=== PATIENT | female | born 1975 | race African-American/Black ===

== ENCOUNTER 2016-08-10 11:56 | Inpatient (IN) | payer OTHER ==
--- NOTE | ~2016-08-10 | DS ---
Discharge Summary [facility] [address] [place]. [address] NAME: ANTHONY DUGAN : 71 STATUS : ADM IN [facility]#: [id number] AGE: 41 ADM/REG DATE : 08/10/16 MR#: [id number] REPORT SERV DATE: 08/16/16 DICTATED BY: TAMAR OWENS DATE: 08/16/16 REPORT STATUS : Draft TRANSCRIBED BY: MODL DATE: 08/16/16 ADMISSION DATE: 08/10/2016 DISCHARGE DATE: 08/16/2016 FINAL HOSPITAL DIAGNOSES: 1. Congestive heart failure. 2. HIV. 3. Chronic kidney disease. CONSULTATIONS: Dr. Hyatt, Cardiology, and Dr. Romero, Infectious Disease. PROCEDURES: 1. Echocardiogram done on the showing LV systolic function 36%, anteroseptal akinesis moderate, left atrial dilatation. 2. CT abdomen and pelvis done on the showing enlarged liver with no focal lesions, cardiomegaly, and cholelithiasis. CURRENT PHYSICAL FINDINGS AND HISTORY OF PRESENT ILLNESS: Please see dictated H and P by Dr. Borja on the . In brief, the patient came in with complaint of shortness of breath, was noted to have a decreased EF, and pulmonary edema. Vitals at time of admission, blood pressure was 138/98, temperature was 97.9, pulse was 108. LAB: Initial BMP showed a creatinine of 1.69, she had a creatinine of 1.67 in 07/2016, 1.15 in 02/2015. BNP was 2654. HCG was negative. CBC showed a mild anemia at 9.6 and 30.0. Flu screen was negative. CD4 counts are currently pending. Urinalysis showed trace LE, but 20 epithelial cells. UDS done on the was positive for cocaine and opiates. Blood cultures done on the were negative. Cryptococcal antigen is pending. HOSPITAL COURSE: The patient was admitted for above symptoms. She was started on diuretics, electrolytes, and renal function were monitored. When repeat echocardiogram noted the decreased EF, Cardiology was consulted. On reviewing her previous records just forwarded by Diagnostic, her akinesis and decrease CHF were actually somewhat improved and chronic. Through her hospital course, she was diuresed with a slight increase in her creatinine, but overall her symptoms improved. She was also placed on a fluid restriction. She had no other significant problems or complications during her hospital stay and cardiology signed off with recommendations to follow up with her previous rose grader, Dr. Grady. ID recommended she follow the previous ID physicians and an outpatient followup with [facility] will be arranged for monitoring her diuretics and renal function. Prescriptions were written for Coreg 6.25 b.i.d. and Crestor 20 one per day. She will otherwise resume aspirin 81 one per day, Triumeq one daily, Diflucan dose was decreased to 200 daily. She will continue any OTC cough medicines, Valium 2 mg b.i.d., Lasix 20 one per day. Discharge Summary [address] [place]. [address] NAME: ANTHONY DUGAN : 71 STATUS : ADM IN PAT#: [id number] AGE: 41 ADM/REG DATE : 08/10/16 MR#: [id number] REPORT SERV DATE: 08/16/16 DICTATED BY: TAMAR OWENS DATE: 08/16/16 REPORT STATUS : Draft TRANSCRIBED BY: LEANDRA DATE: 08/16/16 RICKF/LEANDRA Tamar Owens M.D. / [id number] CC: Tamar Owens M.D.
--- NOTE | ~2016-08-10 | HP ---
History And Physical [id number] [place]. [address] NAME: ANTHONY DUGAN : 71 STATUS : ADM IN [facility]#: [id number] AGE: 41 ADM/REG DATE : 08/10/16 MR#: [id number] REPORT SERV DATE: 08/10/16 DICTATED BY: LINDSEY ROY DATE: 08/10/16 REPORT STATUS : Draft TRANSCRIBED BY: MODAlfonso DATE: 08/10/16 DATE OF ADMISSION: 08/10/2016 REASON FOR ADMISSION: Acute congestive heart failure, pulmonary edema. HISTORY OF PRESENT ILLNESS: Ms. Dugan is a 41-year-old female with history of HIV, chronic pain, presents to the emergency department today with cough for one month, treated with [id number] remedies for cold. The cough has been dry with occasional mucus production associated with low back pain and pleuritic pain. She has had fevers at night with sweats. Appetite has been very poor and she has lost some nonspecific amount of weight. She has had some nausea and vomiting, only has tolerated clears. She has had leg swelling, shortness of breath, dyspnea on exertion, orthopnea, and PND but no bleeding or neurologic complaints. REVIEW OF SYSTEMS: Remainder of review of systems is negative. PAST MEDICAL HISTORY: As mentioned above. History of meningitis for which she had a protracted recovery. MEDICATIONS: Include Triumeq, Valium, and Lasix. ALLERGIES: NONE. FAMILY HISTORY: Positive for cardiac disease. SOCIAL HISTORY: The patient is a smoker. PHYSICAL EXAMINATION: VITAL SIGNS: On presentation, blood pressure 156/93, pulse 108, respiratory rate 18, afebrile, saturating 98%. GENERAL: Awake, alert, and oriented x3. No apparent distress, very tearful and anxious. HEENT: Pupils are equal, round, and reactive to light. Extraocular movements intact. No carotid deficits. Moist mucous membranes. Normal oropharynx. NECK: Revealed elevated jugular venous pulsations. No carotid bruits, adenopathy, or goiter. CARDIAC: Tachycardic. Regular rhythm. No murmurs, gallops, or rubs. LUNGS: Revealed a few crackles at bilateral bases. ABDOMEN: Showed nondistended, nontender with hepatojugular reflux noted. EXTREMITIES: 1+ edema bilaterally. Good pulses and capillary refill. She had 3+ deep tendon reflexes throughout. Normal motor function x4. SKIN: Warm and dry. PSYCHIATRIC: She is appropriate. LABORATORY EVALUATION: Sodium 140, potassium 3.6, chloride 108, bicarb 23, BUN 26, creatinine 1.7, glucose 95. BNP 2600. White count 4000, H and H 10/30, platelets 385. History And Physical [address] [address] NAME: ANTHONY DUGAN : 71 STATUS : ADM IN PAT#: [id number] AGE: 41 ADM/REG DATE : 08/10/16 MR#: [id number] REPORT SERV DATE: 08/10/16 DICTATED BY: LINDSEY ROY DATE: 08/10/16 REPORT STATUS : Draft TRANSCRIBED BY: LEANDRA DATE: 08/10/16 Alkaline phosphatase 248, AST 92, ALT 104. Chest x-ray showed evidence of pulmonary edema. EKG showed left ventricular hypertrophy with lateral T-wave inversions. Flu swab was negative. CT of the abdomen for unclear indications showed a benign-appearing gallstone. Pulmonary edema was also verified. ASSESSMENT AND PLAN: 1. Acute congestive heart failure, new diagnosis, question is high output. Not aware of any cardiac complications of Triumeq. We will diurese her, get an echocardiogram, anticipate carvedilol and afterload reducers. However, right now, her tachycardia seems to be mostly driven by anxiety. Anxiolytics, pain control are indicated. 2. Human immunodeficiency virus. Continue Triumeq. 3. Elevated liver function enzymes, probably due to passive congestion. Re-evaluate following diuresis, but consider hepatitis serology. We will try to get records from Dr. Garcia regarding this. 4. Chronic kidney disease, question acute kidney injury. The patient seems euvolemic. We will follow for now. In light of her hypertension, we may consider hydralazine for renal artery dilatation. 5. Anemia, likely due to the human immunodeficiency virus itself. We will follow her iron stores. BHARGAVI/LEANDRA Lindsey Roy M.D. / [id number] CC: Dwaine Neville M.D.
--- NOTE | ~2016-08-10 | CN ---
Consultation Report [facility] [address] [place]. [address] NAME: ANTHONY DUGAN : 71 STATUS : ADM IN PAT#: [id number] AGE: 41 ADM/REG DATE : 08/10/16 MR#: [id number] REPORT SERV DATE: 08/14/16 DICTATED BY: JUAN ROMERO DATE: 08/14/16 REPORT STATUS : Draft TRANSCRIBED BY: MODL DATE: 08/14/16 INFECTIOUS DISEASE CONSULT DATE OF CONSULTATION: REASON FOR REFERRAL: Evaluation and treatment of cardiac disease in an HIV patient. HISTORY OF PRESENT ILLNESS: The patient is a 41-year-old female. She has a history of HIV that I believe goes back some nine years. She states she sees now Dr. Garcia. In 2014, she was diagnosed with meningitis and was treated at [facility], I do not have access to those records now. The patient says she has had difficulty with cognitive dysfunction, memory, etc, since then. While hospitalized for that, she also states she had a heart attack. She states that she has been taking anti-HIV medication in the form of Triumeq since 2014 and that her last viral load when checked by Dr. Garcia in 2016, in March, was undetectable. She came in here on 08/10/2016 complaining of over a month of increasing shortness of breath, paroxysmal nocturnal dyspnea, orthopnea, nausea, and general fatigue. Her chest x-ray was consistent with pulmonary edema. She has been evaluated by Cardiology and has responded to diuresis. She has had no fevers, chills, or night sweats. She has had no productive cough. There has been nothing that appears to be pneumonia on her chest x- ray. No headache, diarrhea, skin lesions, or rashes. No unusual environmental exposures. She insists she has been taking her Triumeq without missing doses. PAST MEDICAL HISTORY: Otherwise, unremarkable. MEDICATIONS: As mentioned above. ALLERGIES: SHE HAS NO KNOWN ANTIMICROBIAL ALLERGIES. SOCIAL HISTORY: She is , smokes, has no history of alcohol or substance abuse, and has been at home trying to take care of two grandchildren on her own. FAMILY HISTORY: Noncontributory. PHYSICAL EXAMINATION: GENERAL: A nontoxic adult female, in no acute distress. Alert and oriented. VITAL SIGNS: Temperature has been normal throughout the hospital stay, 98.1 at present with a pulse of 98, respirations 16, blood pressure 118/55, weight 77 kg. HEENT: Sclerae clear. No oral lesions. No signs of oral thrush. NECK: Supple without meningeal signs or lymphadenopathy. LUNGS: Some rales bilaterally in the bases. HEART: Regular rate and rhythm. ABDOMEN: Soft, nontender. Positive bowel sounds. EXTREMITIES: Without clubbing or cyanosis. Mild edema in both lower extremities. No Consultation Report [address] [place]. [address] NAME: ANTHONY DUGAN : 71 STATUS : ADM IN PAT#: [id number] AGE: 41 ADM/REG DATE : 08/10/16 MR#: [id number] REPORT SERV DATE: 08/14/16 DICTATED BY: UJAN ROMERO DATE: 08/14/16 REPORT STATUS : Draft TRANSCRIBED BY: LEANDRA DATE: 08/14/16 rashes noted. LABORATORY DATA: White blood cell count on 08/10/2016 was 4.4, hematocrit 30, platelets 385, unremarkable differential. BUN and creatinine 22 and 2.04, creatinine was 1.69 at admission. Liver function tests mildly elevated at admission. Alkaline phosphatase 279, SGPT 119, SGOT 93, it felt likely be due to congestive phenomenon with congestive heart failure. IMPRESSION: 1. Human immunodeficiency virus infection, status unknown, but the patient states she has an undetectable viral load and has not been missing doses of her anti-HIV medication. 2. Congestive heart failure. There is an increased risk of coronary artery disease associated with both human immunodeficiency virus and the abacavir component of Triumeq, but there is no inherent cardiac toxicity from either that I am aware of. RECOMMENDATIONS: 1. Continue Triumeq for now. We will discuss her case, if I can, with Dr. Garcia who normally follows her. 2. Check CD4 and viral load. Finally, I will follow the patient with you. I appreciate very much your consulting on this patient. ARTUR Juan Romero M.D. / [id number] CC: Dwaine St M.D.
--- NOTE | ~2016-08-10 | CN ---
Consultation Report [facility] [address] [place]. [address] NAME: ANTHONY DUGAN : 71 STATUS : ADM IN PAT#: [id number] AGE: 41 ADM/REG DATE : 08/10/16 MR#: [id number] REPORT SERV DATE: 08/13/16 DICTATED BY: JACQUELYN REES DATE: 08/12/16 REPORT STATUS : Draft TRANSCRIBED BY: MODAlfonso DATE: 08/12/16 CARDIOLOGY CONSULT DATE OF CONSULTATION: REASON FOR CONSULTATION: This is a 41-year-old female, we were consulted for heart failure. HISTORY OF PRESENT ILLNESS: This is a 41-year-old female who has a long- standing history of HIV at least nine years according her recollection with complex past medical history. She is a very poor historian, and there are very limited records available. I have learned from the patient and her relative who was in the room that she has meningitis, seizures, and some possible myocardial infarction around 2014 when she had been the [facility]. She had been treated by Dr. Miah Wright at that time. She does not remember whether she had coronary arteriogram or not. Subsequently, she was transferred to a penitentiary and then the hospice. She has on the hospice care, but then was discharged. Circumstances are unclear. She was in the hospital transiently and seen by Dr. Perrin. When she has been on hospice care, she has chronic pain syndrome with some pain in the rectum also. This is around 2014. She has chronic anemia and chronic kidney disease. Apparently, she is followed by a physician at [facility] [place] [facility] of unknown name. She has not followed by Infectious Disease specialist. The patient reported that she has been taking only medication for HIV namely Triumeq 1 tablet once a day. She has been occasionally taking Robitussin, Lasix, Diflucan, and Valium over the last month while she developed progressive dyspnea on exertion, nausea, vomiting, anorexia, and inability breathe according to her recollection. She has had some fevers and night sweats. She was found to have cardiomegaly, hepatomegaly, and interstitial edema on the chest x-ray, and she is just started to be treated for heart failure by Primary Service. Echocardiogram earlier today, interpreted by Dr. Dias, revealed moderate LV enlargement. There is moderate decrease in systolic function. EF 35%. I personally reviewed the images which revealed mild global hypokinesis. There is anterior and anteroseptal akinesis with trace pericardial effusion and left atrial enlargement. There is also mild mitral valve regurgitation. No previous echocardiogram available for comparison. The patient is now able to talk to me without any significant dyspnea. She denied any chest pain, palpitation, or syncope. She had been reportedly chronically short of breath. She is in a difficult situation while she is from her and now is raising two of her grandkids 5 and 3-year-old. She has been walking without any support. She is a very poor historian. The rest of review of systems is negative. PAST MEDICAL HISTORY: 1. HIV at least for nine years. 2. Cardiomegaly, likely chronic with reported history of myocardial infarction in [address] Wright evaluation at the [facility]. 3. Chronic left bundle-branch block. 4. Reported history of meningitis and seizure disorder in 2014, the patient was subsequently on hospice care. Consultation Report [address] [place]. [address] NAME: ANTHONY DUGAN : 71 STATUS : ADM IN [facility]#: [id number] AGE: 41 ADM/REG DATE : 08/10/16 MR#: [id number] REPORT SERV DATE: 08/13/16 DICTATED BY: JACQUELYN REES DATE: 08/12/16 REPORT STATUS : Draft TRANSCRIBED BY: LEANDRA DATE: 08/12/16 5. Chronic anemia. There is chronic kidney disease. 6. History of drug abuse. 7. Medical noncompliance. SOCIAL HISTORY: The patient is from her . She is unemployed. She is currently raising two grandkids and lives alone. She denies smoking cigarettes, but admits to smoke marijuana. She has been possibly using other drugs, but she is not clear on that. No drug screen was obtained yet. No alcohol. FAMILY HISTORY: Negative for sudden cardiac premature in family. HOME MEDICATIONS: Triumeq once a day, Valium as needed, Diflucan 400 mg once a day, Lasix was prescribed by PCP recently, and NyQuil and Robitussin. She was just started today by Dr. Borja on Lipitor, Coreg, and aspirin. Since yesterday, on hydralazine and nitroglycerin. PHYSICAL EXAMINATION: GENERAL: In no acute distress. VITAL SIGNS: Blood pressure 107/59, heart rate 104 and regular. HEENT - Pupils reactive to light and accommodation. Moist mucosa membrane. NECK: No JVD. Normal carotid upstroke. No carotid bruits. LUNGS: Decreased breath sounds with occasional crackles at the bases. HEART: S1. No S3-S4, lateral displaced PMI. ABDOMEN: Distended, nontender. LOWER EXTREMITIES: Trace edema around the ankle with decreased pedal pulses bilaterally. SKIN: Warm with normal turgor. MS: No kyphosis. NEURO/PSY: Alert and oriented. Nonfocal. DATA: Remarkable for CBC with hemoglobin of 9.6. Brain natriuretic peptide elevated up to 2659. Chest x-ray: Cardiomegaly with interstitial edema. CT of the abdomen revealed hepatomegaly, but no ascites. Creatinine 1.6, BUN 28, troponin 0.02 and 0.05. TSH normal. Electrocardiogram revealed normal sinus rhythm at 97 beats per minute with chronic left bundle-branch block. Echocardiogram as above. ASSESSMENT AND PLAN: 1. Heart failure exacerbation. 2. Cardiomegaly of unknown etiology with possible remote history of myocardial infarction. 3. Human immunodeficiency virus infection. 4. Anemia. Consultation Report [address] [address] NAME: ANTHONY DUGAN : 71 STATUS : ADM IN [facility]#: [id number] AGE: 41 ADM/REG DATE : 08/10/16 MR#: [id number] REPORT SERV DATE: 08/13/16 DICTATED BY: JACQUELYN REES DATE: 08/12/16 REPORT STATUS : Draft TRANSCRIBED BY: LEANDRA DATE: 08/12/16 5. Chronic kidney disease. PROBLEMS, MEDICAL NONCOMPLIANCE: The patient should have definitely urine drug screen performed. She is sedated since she has been at the hospital. So far, her blood culture is negative. She will need to be in strict I and O, fluid restriction, and start her diuresis. I agree on carvedilol. She may be in case that her kidney function will improve, a candidate for JEANNA inhibitor or ARB. We will try to obtain records from Dr. Wright from [facility]. In case she never had coronary arteriogram, she may be a candidate for one to determine if she indeed has myocardial infarction and ischemic cardiomyopathy, her cardiomyopathy. There is no significant pericardial effusion. We discussed that also HIV may be affecting one of the cause of her cardiomyopathy. She will need to be closely followed by the primary care physician and find the infectious disease specialist. Multiple questions answered. ALLYSON/JINGL Jacquelyn Rees M.D. / [id number] CC: Robinson Borja M.D. NO PCP
[2016-08-10 10:20] LABS: BASOPHILS 0.5 %; BASOPHILS ABSOLUTE 0.02 10/3/uL (0.0-0.16); EOSINOPHILS ABSOLUTE 0.09 10/3/uL (0.0-0.53); ER CBC TAT 0 Hrs 16 Mins; HEMOGLOBIN 9.6 g/dL (12.0-16.0); LYMPHOCYTES 28.4 %; LYMPHOCYTES ABSOLUTE 1.26 10/3/uL (0.67-4.30); MEAN CORPUSCULAR HEMOGLOB 29.6 pg (26.0-34.0); MEAN CORPUSCULAR VOLUME 92.6 fL (80-100); MEAN PLATELET VOLUME 9.5 fL (9.2-13.0); MONOCYTES 8.8 %; MONOCYTES ABSOLUTE 0.39 10/3/uL (0.21-1.20); NEUTROPHILS 60.3 %; NEUTROPHILS ABSOLUTE 2.68 10/3/uL (2.02-8.40); PLATELET COUNT 385 10/3/uL (150-400); RBC DISTRIBUTION WIDTH 14.2 % (12.0-16.0); RED CELL COUNT 3.24 10/6/uL (4.0-5.6); WHITE BLOOD CELLS 4.4 10/3/uL (4.5-10.5)
[2016-08-10 10:21] LABS: MANUAL DIFF NO %
[2016-08-10 10:26] LABS: INFLUENZA A SCREEN NEGATIVE (NEGATIVE); INFLUENZA B SCREEN NEGATIVE (NEGATIVE)
[2016-08-10 10:31] LABS: BUN (BLOOD UREA NITROGEN) 22 MG/DL (6-23); CALCIUM, SERUM 8.2 MG/DL (8.5-10.4); CHLORIDE, SERUM 108 MMOL/L (96-112); CO2 (CARBON DIOXIDE) 23 MMOL/L (24-34); CREATININE 1.69 MG/DL (0.55-1.02); GFR AFRICAN AMERICAN 42 ML/MIN (>=60); GFR NON AFRICAN AMERICAN 37 ML/MIN (>=60); GLUCOSE, SERUM 95 MG/DL (60-99); POTASSIUM, SERUM 3.6 MMOL/L (3.5-5.3); SGOT(AST) 92 U/L (5-40); SGPT(ALT) 109 U/L (5-65); SODIUM, SERUM 140 MMOL/L (135-148); TOTAL BILIRUBIN 0.5 MG/DL (0-1.2); TOTAL PROTEIN 6.9 G/DL (6.0-8.5); TROPONIN I 0.04 NG/ML (<0.05)
[2016-08-10 10:32] LABS: A/G RATIO 0.6 (0.7-1.9); ALBUMIN 2.7 G/DL (3.5-5.0); ALKALINE PHOSPHATASE 248 U/L (45-117); GLOBULIN 4.2 G/DL (2.5-4.1)
[2016-08-10 11:05] LABS: ASCORBIC ACID (UR NOT ORDER) NEG (NEG); BILIRUBIN, URINE NEGATIVE (NEG); ER URINALYSIS TAT 0 Hrs 20 Mins; KETONE, URINE NEGATIVE (NEG); LEUKOCYTE ESTERASE(NOT OR TRACE (NEG); NITRITE (URINE) NEG (NEG); WBC (NOT ORDERED) (RFLEX) 9 (0-5)
[~2016-08-10 11:56] MED LIST: ACET500CAP PO; ANUSOL-HC2.5 % RE; CORDARONE PO; DOLOPHINE5 MG PO; DSS PO; ENULOSE PO; FLU PO; HIV MED PO; KEPPRA500 PO; LOP25 PO; NORCO1 TAB PO; NYQUIL COLD PO; OXYCONTIN15 MG PO; PERCOCET1 TA4 PO; PR25 PO; PRIN10 PO; ROBITUSSIN PO; SENTAB PO; THERAFLU PO; TRIUMEQ TABLET1 EACH PO; XANAX1 MG PO
[2016-08-10] MEDS ORDERED: FLUCON2 PO (13:02)
[2016-08-10] MEDS ORDERED: V2 PO (13:03)
[2016-08-10] MEDS ORDERED: VIRTUSSIN AC PO (13:05)
[2016-08-10] MEDS ORDERED: L20 PO (13:08)
[2016-08-10 19:41] LABS: FREE T4 1.43 NG/DL (0.76-1.46)
[2016-08-11 08:32] LABS: A/G RATIO 0.7 (0.7-1.9); ALBUMIN 3.1 G/DL (3.5-5.0); BUN (BLOOD UREA NITROGEN) 19 MG/DL (6-23); CALCIUM, SERUM 8.5 MG/DL (8.5-10.4); CHLORIDE, SERUM 100 MMOL/L (96-112); CO2 (CARBON DIOXIDE) 27 MMOL/L (24-34); CREATININE 1.81 MG/DL (0.55-1.02); GFR AFRICAN AMERICAN 39 ML/MIN (>=60); GFR NON AFRICAN AMERICAN 34 ML/MIN (>=60); GLOBULIN 4.5 G/DL (2.5-4.1); GLUCOSE, SERUM 78 MG/DL (60-99); POTASSIUM, SERUM 3.7 MMOL/L (3.5-5.3); SGOT(AST) 93 U/L (5-40); SGPT(ALT) 119 U/L (5-65); SODIUM, SERUM 141 MMOL/L (135-148); TOTAL BILIRUBIN 0.6 MG/DL (0-1.2); TOTAL PROTEIN 7.6 G/DL (6.0-8.5)
[2016-08-11 08:33] LABS: ALKALINE PHOSPHATASE 279 U/L (45-117)
[2016-08-12 17:05] LABS: AMPHETAMINES (NOT ORD) NEG (NEG); BENZODIAZEPINES (NOT ORD) NEG (NEG); COCAINE (NOT ORDERED) POS (NEG); PHENCYCLIDINE(PCP) NEG (NEG)
[2016-08-12 17:06] LABS: BARBITURATES (NOT ORDERED NEG (NEG); CANNABINOIDS (THC) NEG (NEG); OPIATES POS (NEG); TRICYCLICS NEG (NEG)
[2016-08-13 07:52] LABS: BUN (BLOOD UREA NITROGEN) 17 MG/DL (6-23); C-REACTIVE PROTEIN 90.8 MG/L (<8.0); CALCIUM, SERUM 8.6 MG/DL (8.5-10.4); CHLORIDE, SERUM 100 MMOL/L (96-112); CHOL/HDL RATIO(NOT ORDER) 2.1 (0-5); CHOLESTEROL 118 MG/DL (< 200); CO2 (CARBON DIOXIDE) 26 MMOL/L (24-34); CREATININE 1.68 MG/DL (0.55-1.02); GFR AFRICAN AMERICAN 43 ML/MIN (>=60); GFR NON AFRICAN AMERICAN 37 ML/MIN (>=60); GLUCOSE, SERUM 89 MG/DL (60-99); HDL CHOLESTEROL 57 MG/DL (> 49); LDL CHOLESTEROL 45 MG/DL (< 130); NON-HDL CHOLESTEROL 61 MG/DL (< 160); POTASSIUM, SERUM 3.2 MMOL/L (3.5-5.3); SODIUM, SERUM 138 MMOL/L (135-148); TRIGLYCERIDE 83 MG/DL (< 150)
[2016-08-14 05:54] LABS: CALCIUM, SERUM 8.6 MG/DL (8.5-10.4); CHLORIDE, SERUM 102 MMOL/L (96-112); CO2 (CARBON DIOXIDE) 25 MMOL/L (24-34); CREATININE 2.04 MG/DL (0.55-1.02); GFR AFRICAN AMERICAN 34 ML/MIN (>=60); GFR NON AFRICAN AMERICAN 29 ML/MIN (>=60); GLUCOSE, SERUM 87 MG/DL (60-99); POTASSIUM, SERUM 3.4 MMOL/L (3.5-5.3); SODIUM, SERUM 139 MMOL/L (135-148)
[2016-08-14 05:55] LABS: BUN (BLOOD UREA NITROGEN) 22 MG/DL (6-23)
[2016-08-15 12:47] LABS: BUN (BLOOD UREA NITROGEN) 25 MG/DL (6-23); CALCIUM, SERUM 8.8 MG/DL (8.5-10.4); CHLORIDE, SERUM 99 MMOL/L (96-112); CO2 (CARBON DIOXIDE) 27 MMOL/L (24-34); CREATININE 1.95 MG/DL (0.55-1.02); GFR AFRICAN AMERICAN 36 ML/MIN (>=60); GFR NON AFRICAN AMERICAN 31 ML/MIN (>=60); GLUCOSE, SERUM 101 MG/DL (60-99); POTASSIUM, SERUM 4.1 MMOL/L (3.5-5.3); SODIUM, SERUM 135 MMOL/L (135-148)
[2016-08-16 11:40] LABS: BASOPHILS 0.2 %; BASOPHILS ABSOLUTE 0.01 10/3/uL (0.0-0.16); EOSINOPHILS ABSOLUTE 0.22 10/3/uL (0.0-0.53); LYMPHOCYTES 38.7 %; LYMPHOCYTES ABSOLUTE 1.71 10/3/uL (0.67-4.30); MEAN CORPUS HGB CONC 32.3 g/dL (32.0-36.0); MEAN CORPUSCULAR HEMOGLOB 29.9 pg (26.0-34.0); MEAN CORPUSCULAR VOLUME 92.7 fL (80-100); MEAN PLATELET VOLUME 9.5 fL (9.2-13.0); MONOCYTES ABSOLUTE 0.44 10/3/uL (0.21-1.20); NEUTROPHILS 46.1 %; NEUTROPHILS ABSOLUTE 2.04 10/3/uL (2.02-8.40); PLATELET COUNT 380 10/3/uL (150-400); RBC DISTRIBUTION WIDTH 14.6 % (12.0-16.0); RED CELL COUNT 3.68 10/6/uL (4.0-5.6); WHITE BLOOD CELLS 4.4 10/3/uL (4.5-10.5)
[2016-08-16 11:45] LABS: HEMATOCRIT 34.1 % (36.0-48.0); MANUAL DIFF NO %
[2016-08-16 12:45] LABS: CD4 % 15.7 % (30.0-65.0); CD4 LYMPH % 23.6 % (15.0-48.0); CD4 SOURCE Blood (())
[2016-08-16 13:25] LABS: A/G RATIO 0.7 (0.7-1.9); ALBUMIN 2.8 G/DL (3.5-5.0); BUN (BLOOD UREA NITROGEN) 25 MG/DL (6-23); CALCIUM, SERUM 8.4 MG/DL (8.5-10.4); CHLORIDE, SERUM 105 MMOL/L (96-112); CO2 (CARBON DIOXIDE) 24 MMOL/L (24-34); CREATININE 1.52 MG/DL (0.55-1.02); GFR AFRICAN AMERICAN 48 ML/MIN (>=60); GFR NON AFRICAN AMERICAN 42 ML/MIN (>=60); GLOBULIN 4.3 G/DL (2.5-4.1); GLUCOSE, SERUM 89 MG/DL (60-99); POTASSIUM, SERUM 4.2 MMOL/L (3.5-5.3); SGOT(AST) 30 U/L (5-40); SGPT(ALT) 38 U/L (5-65); SODIUM, SERUM 138 MMOL/L (135-148); TOTAL BILIRUBIN 0.4 MG/DL (0-1.2); TOTAL PROTEIN 7.1 G/DL (6.0-8.5)
[2016-08-16 13:27] LABS: ALKALINE PHOSPHATASE 173 U/L (45-117)
[2016-08-16] MEDS ORDERED: CRESTOR20 MG PO (14:41)
[2016-08-16] MEDS ORDERED: COREG6 PO (14:41)
[2016-08-16 16:17] LABS: HIV-1 VIRAL LOAD RESULT 32 (NOTDET); HIV-1 VIRAL RESULT 1.5 (())
== END 2016-08-16 17:40 | disposition home or self-care (01) | DRG 291 ==
LOC: ER 11:56 → 4SO 14:33
PROVIDERS: Emergency Medicine; Internal Medicine; Internal Medicine Cardiovascular Disease; Internal Medicine Infectious Disease
DX: I13.0 Hypertensive heart and chronic kidney disease with heart failure and stage 1 through stage 4 chronic kidney disease, or unspecified chronic kidney disease (principal); I50.31 Acute diastolic (congestive) heart failure; B20 Human immunodeficiency virus [HIV] disease; I42.9 Cardiomyopathy, unspecified; Z91.19 Patient's noncompliance with other medical treatment and regimen; I10 Essential (primary) hypertension; F14.10 Cocaine abuse, uncomplicated; I44.7 Left bundle-branch block, unspecified; N18.9 Chronic kidney disease, unspecified; D63.8 Anemia in other chronic diseases classified elsewhere
CPT/HCPCS: 71010; 74176; 80048; 80053; 80061; 80305; 81001; 82962; 83690; 83735; 83880; 84439; 84443; 84484; 84703; 85025; 86140; 86361; 87040; 87327; 87536; 87804; 93005; 93306; 96374; 96375; 99285; A9270-GY; J1940; J2405

== ENCOUNTER 2016-08-23 15:45 | Emergency (ER) | payer OTHER ==
[2016-08-23 11:16] LABS: BASOPHILS 0.4 %; BASOPHILS ABSOLUTE 0.02 10/3/uL (0.0-0.16); EOSINOPHILS 0.9 %; EOSINOPHILS ABSOLUTE 0.04 10/3/uL (0.0-0.53); ER CBC TAT 0 Hrs 07 Mins; HEMOGLOBIN 9.7 g/dL (12.0-16.0); LYMPHOCYTES 33.9 %; LYMPHOCYTES ABSOLUTE 1.58 10/3/uL (0.67-4.30); MEAN CORPUS HGB CONC 31.3 g/dL (32.0-36.0); MEAN CORPUSCULAR HEMOGLOB 29.5 pg (26.0-34.0); MEAN CORPUSCULAR VOLUME 94.2 fL (80-100); MEAN PLATELET VOLUME 10.3 fL (9.2-13.0); MONOCYTES 8.4 %; MONOCYTES ABSOLUTE 0.39 10/3/uL (0.21-1.20); NEUTROPHILS 56.4 %; NEUTROPHILS ABSOLUTE 2.63 10/3/uL (2.02-8.40); PLATELET COUNT 347 10/3/uL (150-400); RBC DISTRIBUTION WIDTH 15.3 % (12.0-16.0); RED CELL COUNT 3.29 10/6/uL (4.0-5.6); WHITE BLOOD CELLS 4.7 10/3/uL (4.5-10.5)
[2016-08-23 11:17] LABS: MANUAL DIFF NO %
[2016-08-23 11:25] LABS: INTERNATIONAL NORMAL RATI 1.2 UNITS (-); PARTIAL THROMBO TIME 29.3 SEC (22.5-37.2); PROTIME (NOT ORD) 15.5 SEC (12.0-14.5)
[2016-08-23 11:30] LABS: BUN (BLOOD UREA NITROGEN) 26 MG/DL (6-23); CALCIUM, SERUM 8.5 MG/DL (8.5-10.4); CHEST PAIN PROFILE TAT 0 Hrs 21 Mins; CHLORIDE, SERUM 111 MMOL/L (96-112); GFR AFRICAN AMERICAN 39 ML/MIN (>=60); GFR NON AFRICAN AMERICAN 34 ML/MIN (>=60); GLUCOSE, SERUM 95 MG/DL (60-99); SODIUM, SERUM 140 MMOL/L (135-148); TROPONIN I 0.02 NG/ML (<0.05)
[2016-08-23 11:31] LABS: CO2 (CARBON DIOXIDE) 19 MMOL/L (24-34)
[~2016-08-23 15:45] MED LIST changes: +COREG6 PO; +CRESTOR20 MG PO; +FLUCON2 PO; +L20 PO; +V2 PO; +VIRTUSSIN AC PO
== END 2016-08-23 18:43 | disposition home or self-care (01) ==
LOC: ER 15:45
PROVIDERS: Emergency Medicine
DX: I50.9 Heart failure, unspecified (principal); F41.9 Anxiety disorder, unspecified; M54.5 Low back pain; N18.9 Chronic kidney disease, unspecified; B20 Human immunodeficiency virus [HIV] disease
CPT/HCPCS: 71020; 72100; 80048; 83735; 83880; 84484; 85025; 85610; 85730; 93005; 94640; 96374; 96375; 99285; A9270-GY; J1170

== ENCOUNTER 2016-08-29 17:26 | Emergency (ER) | payer OTHER ==
[2016-08-29 18:19] LABS: BASOPHILS 0.4 %; BASOPHILS ABSOLUTE 0.03 10/3/uL (0.0-0.16); EOSINOPHILS 4.8 %; EOSINOPHILS ABSOLUTE 0.37 10/3/uL (0.0-0.53); ER CBC TAT 0 Hrs 05 Mins; HEMATOCRIT 33.1 % (36.0-48.0); HEMOGLOBIN 10.5 g/dL (12.0-16.0); IMMATURE GRANULOCYTES 0.1 %; IMMATURE GRANULOCYTES ABSOLUTE 0.01 10/3/uL (0.0-0.11); LYMPHOCYTES 19.9 %; LYMPHOCYTES ABSOLUTE 1.52 10/3/uL (0.67-4.30); MANUAL DIFF NO %; MEAN CORPUS HGB CONC 31.7 g/dL (32.0-36.0); MEAN CORPUSCULAR VOLUME 94.6 fL (80-100); MEAN PLATELET VOLUME 9.8 fL (9.2-13.0); MONOCYTES 6.1 %; MONOCYTES ABSOLUTE 0.47 10/3/uL (0.21-1.20); NEUTROPHILS 68.7 %; NEUTROPHILS ABSOLUTE 5.25 10/3/uL (2.02-8.40); PLATELET COUNT 431 10/3/uL (150-400); RBC DISTRIBUTION WIDTH 14.9 % (12.0-16.0); WHITE BLOOD CELLS 7.7 10/3/uL (4.5-10.5)
[2016-08-29 18:35] LABS: A/G RATIO 0.6 (0.7-1.9); ALBUMIN 2.8 G/DL (3.5-5.0); BUN (BLOOD UREA NITROGEN) 28 MG/DL (6-23); CALCIUM, SERUM 7.9 MG/DL (8.5-10.4); CHLORIDE, SERUM 110 MMOL/L (96-112); CO2 (CARBON DIOXIDE) 21 MMOL/L (24-34); CREATININE 1.53 MG/DL (0.55-1.02); GFR AFRICAN AMERICAN 48 ML/MIN (>=60); GFR NON AFRICAN AMERICAN 41 ML/MIN (>=60); GLOBULIN 4.5 G/DL (2.5-4.1); GLUCOSE, SERUM 82 MG/DL (60-99); SGOT(AST) 20 U/L (5-40); SGPT(ALT) 28 U/L (5-65); SODIUM, SERUM 141 MMOL/L (135-148); TOTAL BILIRUBIN 0.6 MG/DL (0-1.2); TOTAL PROTEIN 7.3 G/DL (6.0-8.5)
[2016-08-29 18:37] LABS: ALKALINE PHOSPHATASE 212 U/L (45-117); POTASSIUM, SERUM 3.7 MMOL/L (3.5-5.3)
== END 2016-08-29 22:36 | disposition home or self-care (01) ==
LOC: ER 17:26
PROVIDERS: Hospitalist
DX: I50.9 Heart failure, unspecified (principal); N18.9 Chronic kidney disease, unspecified; B20 Human immunodeficiency virus [HIV] disease; Z79.899 Other long term (current) drug therapy
CPT/HCPCS: 71020; 80053; 83880; 85025; 87040; 93005; 99285; A9270-GY; J2405